=== PATIENT | female | born 1935 | race Caucasian/White ===

== ENCOUNTER 2016-05-10 10:20 | Inpatient (IN) | payer MEDICARE, BC, OTHER ==
[~2016-05-10] VITALS: Ht 157.5 cm; Wt 65.7 kg
[2016-07-23] MEDS ORDERED: VITAMIN D 1001000 IU PO (14:59)
[2016-07-23] MEDS ORDERED: MAG-OX 400400 MG/TAB PO (14:59)
[2016-07-23] MEDS ORDERED: ZOCOR 10MG10 MG PO (15:00)
[2016-07-23] MEDS ORDERED: OCUVITE1 TA1 PO (15:00)
[2016-07-23] MEDS ORDERED: ZOCOR5 MG PO (15:00)
[2016-07-23] MEDS ORDERED: B-12 500 MCG (15:00)
[2016-07-23] MEDS ORDERED: CITRACAL + D CA1 TAB PO (15:01)
[2016-07-24] VITALS (11 sets, daily range): BP systolic 98–153; BP diastolic 39–74; PULSE 55–94; TEMP 97.7–98.5
[2016-07-24] MEDS ORDERED: THE MEDICINE S200 M2 PO (07:11)
[2016-07-24] MEDS ORDERED: VITAMIN D 400400 IU PO (07:13)
[2016-07-24] MEDS ORDERED: ASPIRIN E.C. 8181 MG PO (07:15)
[2016-07-24] MEDS ORDERED: NORCO 325 MG-51 TAB PO (07:16)
[2016-07-25 00:43] VITALS: BP 107/49; PULSE 59; TEMP 97.5
[2016-07-25 04:19] VITALS: BP 113/52; PULSE 62; TEMP 98.3
[2016-07-25 06:37] LABS: HEMATOCRIT 35.4 % (37.0-47.0); HEMOGLOBIN 11.5 g/dl (12.5-16.0)
[2016-07-25 08:00] VITALS: BP 114/55; PULSE 60; TEMP 97.5
[2016-07-25 12:00] VITALS: BP 96/66; PULSE 60; TEMP 98.1
[2016-07-25 16:00] VITALS: BP 145/75; PULSE 85; TEMP 98.2
[2016-07-25 19:31] VITALS: BP 136/56; PULSE 67; TEMP 97.5
[2016-07-26 04:12] VITALS: BP 145/62; PULSE 68; TEMP 98.1
[2016-07-26 07:49] VITALS: BP 137/51; PULSE 63; TEMP 97.6
[2016-07-26 08:47] LABS: HEMATOCRIT 34.8 % (37.0-47.0); HEMOGLOBIN 11.3 g/dl (12.5-16.0)
[2016-07-26] MEDS ORDERED: ASPI325T6 PO (10:19)
[2016-07-26] MEDS ORDERED: TYLENOL 500MG500 MG PO (10:26)
[2016-07-26] MEDS ORDERED: SENOKOT8.6 MG PO (10:27)
[2016-07-26] MEDS ORDERED: MILK OF MA400 MG/52 PO (10:28)
[2016-07-26] MEDS ORDERED: ROXICODONE 55 MG/TAB PO (10:29)
[2016-07-26] MEDS ORDERED: ULTRAM 50MG TAB50 MG PO (10:30)
[2016-07-26 11:34] VITALS: BP 141/60; PULSE 86; TEMP 98
== END 2016-07-26 14:15 | disposition home or self-care (01) | DRG 470 ==
LOC: JCC 07-24 06:37
PROVIDERS: Orthopaedic Surgery
PROC: 0SRD0J9 Replacement of Left Knee Joint with Synthetic Substitute, Cemented, Open Approach (ICD-10-PCS; principal; 2016-07-24 10:45)
DX: M17.12 Unilateral primary osteoarthritis, left knee (principal); Z95.0 Presence of cardiac pacemaker
CPT/HCPCS: A4315; A9284; C1713; C1776; J1100; J2250; J2405; J2704; J3010; J7030; J7120

== ENCOUNTER → 2016-07-17 | Outpatient (CLI) | payer MEDICARE, BC, OTHER ==
[~2016-07-17] MED LIST: ASPI325T6 PO; ASPIRIN E.C. 8181 MG PO; B-12 500 MCG; CITRACAL + D CA1 TAB PO; MAG-OX 400400 MG/TAB PO; MILK OF MA400 MG/52 PO; NORCO 325 MG-51 TAB PO; OCUVITE1 TA1 PO; ROXICODONE 55 MG/TAB PO; SENOKOT8.6 MG PO; THE MEDICINE S200 M2 PO; TYLENOL 500MG500 MG PO; ULTRAM 50MG TAB50 MG PO; VITAMIN D 1001000 IU PO; VITAMIN D 400400 IU PO; ZOCOR 10MG10 MG PO; ZOCOR5 MG PO
[2016-07-17 12:54] LABS: HIV 1/2 Antibodies Non-Reactive; HIV-1p24 Antigen Non-Reactive
== END ==
LOC: COL.LAB 11:12
PROVIDERS: Orthopaedic Surgery
DX: Z01.812 Encounter for preprocedural laboratory examination (principal)